=== PATIENT | female | born 1935 | race Two or more races ===

== ENCOUNTER 2022-08-03 10:17 | Emergency (ER) | payer OTHER ==
[~2022-08-03] VITALS: Ht 162.6 cm; Wt 68.1 kg
[2022-08-03] MEDS ORDERED: SODIUM CHLORIDE 0.9% 1,000 ML IV ONE (11:15)
[2022-08-03 11:22] LABS: Basophils # (auto) 0 10 ^3/uL (0-0.2); Eosinophils # (auto) 0 10 ^3/uL (0-0.8); Hemoglobin 17.2 g/dL (12.2-16.2); Lymphocytes % (auto) 5.8 % (10.0-50.0); Monocytes # (auto) 0.8 10 ^3/uL (0-1.3); Monocytes % (auto) 4.8 % (0.0-12.0)
[2022-08-03 11:23] LABS: Basophils % (auto) 0.1 % (0.0-2.0); Hematocrit 54.2 % (36.0-46.0); Mean Corpuscular Hemoglobin 27.4 pg (28.0-32.0); Mean Corpuscular Hgb Conc. 31.7 g/dL (32.0-36.0); Mean Corpuscular Volume 86.4 fL (80.0-100.0); Neutrophils # (auto) 14.6 10 ^3/uL (1.6-8.6); Neutrophils % (auto) 89.3 % (37.0-80.0); Nucleated Red Blood Cells % 0.2 %; Red Blood Cells 6.27 10^6/uL (4.0-5.20); Red Cell Distribution Width 16.1 % (11.8-14.3); White Blood Cell 16.4 10^3/uL (4.4-10.8)
[2022-08-03 12:08] LABS: Calcium 10.1 mg/dL (8.5-10.1); Potassium 3.2 mmol/L (3.5-5.1)
[2022-08-03 12:14] LABS: Albumin 4.2 g/dL (3.4-5.0); BUN/Creatinine Ratio 29.3; Bilirubin, Total 0.8 mg/dL (0.2-1.0); Lactic Acid w/Reflex 3.4 mmol/L (0.4-2.0); Magnesium 2.9 mg/dL (1.6-2.6)
[2022-08-03] MEDS ORDERED: cefTRIAXone 1GM/50ML D5W 50 ML IV ONE (12:15)
[2022-08-03] MEDS ORDERED: ACETAMINOPHEN 650 MG RECT SUPP PR ONE (12:15)
[2022-08-03] MEDS ORDERED: cefTRIAXone SOD 1,000 MG VL IM ONE (12:15)
[2022-08-03] MEDS ORDERED: ACETAMINOPHEN 325 MG RECT SUPP PR ONE (13:45)
[2022-08-03] MEDS ORDERED: ACETAMINOPHEN 120 MG RECT SUPP PR ONE (14:15)
[2022-08-03 16:00] VITALS: BP 119/62
== END 2022-08-03 17:09 | disposition home or self-care (01) ==
LOC: ER 10:17 → EDBD 10:17 → ER 16:58
DX: S06.6X0A Traumatic subarachnoid hemorrhage without loss of consciousness, initial encounter (principal); G93.41 Metabolic encephalopathy; R41.82 Altered mental status, unspecified; G30.9 Alzheimer's disease, unspecified; F02.80 Dementia in other diseases classified elsewhere, unspecified severity, without behavioral disturbance, psychotic disturbance, mood disturbance, and anxiety; R94.31 Abnormal electrocardiogram [ECG] [EKG]; D72.829 Elevated white blood cell count, unspecified; W18.39XA Other fall on same level, initial encounter; Y93.89 Activity, other specified; Y92.098 Other place in other non-institutional residence as the place of occurrence of the external cause; Y99.8 Other external cause status
CPT/HCPCS: 36415; 70450; 71045; 80053; 83605; 83735; 84484; 85025; 87040; 93005; 96372; 99285; J0696